=== PATIENT | female | born 1945 | race Caucasian/White ===

== ENCOUNTER 2019-01-31 20:49 | Observation (INO) | payer OTHER ==
[~2019-01-31] VITALS: Ht 165.1 cm; Wt 73.0 kg
[~2019-01-31 20:49] MED LIST: AUGMENTIN 875875 M1; CALCIUM; CELEBREX 200 M200 M1 PO; CLARITIN10 MG; FAMOTIDINE PO; FLONASE 0.05%50 MCG NASAL; LEVOTHYROXIN0.125 M2; LIMBREL 500 MG500 MG PO; MEDROLDOSEPACK PO; MOBIC15 MG PO; MUCINEX600 MG; NORCO 5-325 TA1 EACH PO; VITAMIN D1000 UNI1; VOLTAREN GEL 1100 G1 TOP; ZOCOR 20 MG TAB20 M1
[2019-01-31 20:53] VITALS: BP 140/64
[2019-02-01] VITALS (7 sets, daily range): BP systolic 117–123; BP diastolic 59–61
--- NOTE | 2019-02-01 03:53 | NUR ---
Pt arrived from ED at 0100 via cart accomapanied by staff. A/OX4, VSS.Oriented to room and unit. Has an immobilizer on LUE,painful with movement meds given per EMAR with partial relief reported.Requires modearate assist with ADLs at this time.Fall precautions implemented,resting quietly at this time. Will continue to monitor pt.
[2019-02-01] MEDS ORDERED: HYDROCODON-ACE1 EAC7 PO (13:17)
--- NOTE | 2019-02-01 13:38 | NUR ---
ASSESSMENT-PT LIVES AT HOME WITH HER . [address]. THEY SHARE THE HOUSEHOLD THINGS. THEY HAVE 4 SONS, 3 LIVES VERY CLOSE TO THEM AND THEHAVE ANOTHER SIBLING NEXT DOOR. PT DENIES ANY DC NEEDS AT THIS TIME. FOLLOWING TO ASSIST WITH DC PLANNING.
--- NOTE | 2019-02-01 15:00 | NUR ---
PT ASSISTED UP TO THE BATHROOM AND BACK TO BED. DID FINE BUT NEEDS ASSIST W/ MOST THINGS. PAIN MEDS HELPING PAIN. DISCHAGING TO HOME W/ HOME [facility] STARTING TOMORROW.
== END 2019-02-01 16:34 | disposition home health service (06) ==
LOC: ER 20:49 → EROBS 23:06 → 4S 02-01 01:06 → ENTRNSPT 02-01 15:04 → EDTRNSPTSTS 02-01 15:07 → 4S 02-01 16:34
PROVIDERS: ADMIT Family Medicine
DX: S42.202A Unspecified fracture of upper end of left humerus, initial encounter for closed fracture (principal); S60.222A Contusion of left hand, initial encounter; E03.9 Hypothyroidism, unspecified; Z90.710 Acquired absence of both cervix and uterus; Z88.2 Allergy status to sulfonamides; Z88.5 Allergy status to narcotic agent; Z88.6 Allergy status to analgesic agent; Z88.8 Allergy status to other drugs, medicaments and biological substances; Z91.013 Allergy to seafood; Z79.890 Hormone replacement therapy; Z79.899 Other long term (current) drug therapy; W19.XXXA Unspecified fall, initial encounter; Y93.89 Activity, other specified; Y92.009 Unspecified place in unspecified non-institutional (private) residence as the place of occurrence of the external cause

== ENCOUNTER 2019-09-16 10:57 | Emergency (ER) | payer OTHER ==
[~2019-09-16] VITALS: Ht 162.6 cm; Wt 74.8 kg
[~2019-09-16 10:57] MED LIST changes: +HYDROCODON-ACE1 EAC7 PO
[2019-09-16] MEDS ORDERED: NORCO 5-325 TA1 EAC1 PO (13:39)
[2019-09-16 14:00] VITALS: BP 147/70
== END 2019-09-16 14:20 | disposition home or self-care (01) ==
LOC: ER 10:57
DX: S02.2XXA Fracture of nasal bones, initial encounter for closed fracture (principal); S01.21XA Laceration without foreign body of nose, initial encounter; E03.9 Hypothyroidism, unspecified; Z90.710 Acquired absence of both cervix and uterus; Z90.89 Acquired absence of other organs; Z79.899 Other long term (current) drug therapy; Z88.2 Allergy status to sulfonamides; Z88.8 Allergy status to other drugs, medicaments and biological substances; Z88.5 Allergy status to narcotic agent; Z91.013 Allergy to seafood; W07.XXXA Fall from chair, initial encounter; Y93.89 Activity, other specified; Y92.89 Other specified places as the place of occurrence of the external cause; Y99.8 Other external cause status

== ENCOUNTER 2021-01-15 23:12 | Inpatient (IN) | payer OTHER ==
[~2021-01-15] VITALS: Ht 152.4 cm; Wt 75.3 kg
[~2021-01-15 23:12] MED LIST changes: +NORCO 5-325 TA1 EAC1 PO
[2021-01-15 23:27] VITALS: BP 194/91
[2021-01-15] MEDS ORDERED: CLARITIN10 M3 PO (23:32)
[2021-01-15 23:45] LABS: ABSOLUTE NEUTROPHILS 5.1 thou/uL (1.4-8.2); BASOPHILS 0.9 % (0.0-2.0); EOSINOPHILS 1.5 % (0.0-3.0); HEMATOCRIT 42.8 % (37.0-47.0); HEMOGLOBIN 14.2 gm/dL (12.0-15.0); LYMPHOCYTES 22.5 % (24.0-44.0); MCH 31.1 pg (26.0-34.0); MCHC 33.2 g/dL (28.0-37.0); MCV 93.7 fL (80.0-100.0); MONOCYTES 8.1 % (1.0-8.0); PLATELET COUNT 129 thou/uL (150-400); RBC 4.56 mil/uL (4.20-5.00); RDW 16.4 % (10.5-14.5); WBC 7.7 thou/uL (4.0-11.0)
[2021-01-15 23:51] LABS: CREATININE 0.8 mg/dL (0.6-1.0); POTASSIUM 3.5 mmol/L (3.5-5.1)
[2021-01-15 23:58] LABS: INR 0.98; PROTIME 10.7 Seconds (10.5-12.1)
[2021-01-16] VITALS (22 sets, daily range): BP systolic 99–140; BP diastolic 57–94
[2021-01-16 00:51] LABS: URINE BILIRUBIN 1+ (Negative); URINE BLOOD 2+ (Negative); URINE CLARITY CLOUDY; URINE COLOR YELLOW; URINE GLUCOSE-RANDOM* NEGATIVE (Negative); URINE KETONES TRACE (Negative); URINE LEUKOCYTES-REFLEX TRACE (Negative); URINE PROTEIN (DIPSTICK) NEGATIVE (Negative); URINE SPECIFIC GRAVITY >= 1.030 (1.005-1.035)
[2021-01-16 01:05] LABS: SQUAMOUS >10 Many /LPF (0-3); URINE NITRITE-REFLEX POSITIVE (Negative); URINE RBC 3-10 Few /HPF (NONE SEEN); URINE WBC-REFLEX 0-5 Rare /HPF (0-5)
[2021-01-16 01:06] LABS: CALCIUM OXALATE >10 Many /LPF (None Seen); CASTS None Seen /LPF (None Seen); MUCUS >6 Heavy strn/LPF (None Seen)
--- NOTE | 2021-01-16 06:11 | NUR ---
PT TRANSFERRED TO THE ICU AT 0445 ON HEPARIN GTT. TRANSFERRED WITH GLASSES AND CLOTHING. PT RESTING WILL FOLLOW POC.
--- NOTE | 2021-01-16 07:22 | EKG ---
[address] [place] [address] ELECTROCARDIOGRAM REPORT Name: NGHIA CARLIN Room #: 238-P ADM IN M.R.#: [id number] Admission: 01/16/21 Attend Phys: Rehan Lord MD Discharge: Date of : 41 Report #: [id number] [facility] ED Test Date: 2021-01-15 Test Time: 23:52:58 Pat Name: NGHIA CARLIN Department: Room: 238 Gender: F Sports Medicine Physician: fortino rosenthal : 1945 Requested By: Andre Ricks Order Number: [id number] MD: Tai Brady Measurements Intervals [place] Rate: 120 P: 17 CO: 170 QRS: 2 QRSD: 148 T: 260 QT: 336 QTc: 475 Interpretive Statements Sinus tachycardia Ventricular premature complex Nonspecific intraventricular conduction delay Abnormal T, consider ischemia, lateral leads Compared to ECG 05/10/1991 11:45:00 Ventricular premature complex(es) now present Intraventricular conduction delay now present T-wave abnormality now present Possible ischemia now present Sinus rhythm no longer present Electronically Signed On 01-16-2021 7:22:16 CDT by Tai Brady [email or web address] <ELECTRONICALLY SIGNED> By: Tai Brady MD, FACC 01/16/21721 51 51 Tai Brady MD, FAC /EPI
--- NOTE | 2021-01-16 07:22 | EKG ---
[address] [place] [address] ELECTROCARDIOGRAM REPORT Name: NGHIA CARLIN Room #: 238-P ADM IN M.R.#: [id number] Admission: 01/16/21 Attend Phys: Rehan Lord MD Discharge: Date of : 41 Report #: [id number] [facility] ED Test Date: 2021-01-16 Test Time: 01:29:37 Pat Name: NGHIA CARLIN Department: Room: 238 Gender: F [employer]: KATERIN : 1945 Requested By: Andre Ricks Order Number: [id number] MD: Tai Brady Measurements Intervals [place] Rate: 113 P: 78 ME: 212 QRS: 0 QRSD: 116 T: 237 QT: 365 QTc: 501 Interpretive Statements Sinus tachycardia Nonspecific intraventricular conduction delay Abnormal T, consider ischemia, diffuse leads Baseline wander in lead(s) V1 Compared to ECG 01/15/2021 23:52:58 Ventricular premature complex(es) no longer present T-wave abnormality still present Electronically Signed On 01-16-2021 7:22:31 CDT by Tai Brady [email or web address] <ELECTRONICALLY SIGNED> By: Tai Brady MD, FACC 01/16/21 0722 8 Tai Brady MD, FAC /EPI
[2021-01-16 08:40] LABS: HEMATOCRIT 43.2 % (37.0-47.0); HEMOGLOBIN 14.4 gm/dL (12.0-15.0); MCH 31.2 pg (26.0-34.0); MCHC 33.4 g/dL (28.0-37.0); MCV 93.4 fL (80.0-100.0); RBC 4.63 mil/uL (4.20-5.00); RDW 15.7 % (10.5-14.5); WBC 6.7 thou/uL (4.0-11.0)
--- NOTE | 2021-01-16 15:27 | NUR ---
patient admits with COVID positive for a month and SOA. Patient in enhanced isolation for Covid positive. Sp with spouse. 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 They live together in a home with all needs on one level. spouse reports patient cont to drive. PCP is Dr Lord. Reviewed role of casemgt with spouse. No weekend dc anticipated. casemgt following.
--- NOTE | 2021-01-16 19:19 | NUR ---
PATIENT PROGRESSING TOWARD PLAN OF CARE AND HAS BEEN TAKEN OFF ISOLATION PRECAUTIONS. PT CURRENTLY ON HEPARIN GTT AND RECEIVED A BOLUS DOSE OF HEPARIN AT 1544 TODAY. DIET WAS ADVANCED TO REGULAR AND PT IS TOLERATING IT WELL.
[2021-01-17] VITALS (19 sets, daily range): BP systolic 91–128; BP diastolic 50–105
--- NOTE | 2021-01-17 17:03 | NUR ---
BEDSIDE REPORT GIVEN TO CHRISTINE URIBE. PT TRANSFERED TO ROOM 218.
--- NOTE | 2021-01-17 17:55 | NUR ---
Recevied pt to room 218 from ICU. 2L NC. Heparin gtt in place @ 14 unit/kg/hr. High fall precautions in place. Oriented pt to unit. All questions answered.
[2021-01-18 04:15] VITALS: BP 120/70
[2021-01-18 05:34] LABS: HEMATOCRIT 36.3 % (37.0-47.0); MCH 31.8 pg (26.0-34.0); MCV 93.3 fL (80.0-100.0); RBC 3.89 mil/uL (4.20-5.00); RDW 16.1 % (10.5-14.5); WBC 6.2 thou/uL (4.0-11.0)
[2021-01-18 05:36] LABS: HEMOGLOBIN 12.4 gm/dL (12.0-15.0)
[2021-01-18 05:40] LABS: ALBUMIN 2.8 g/dL (3.4-5.0); CALCIUM 8.6 mg/dL (8.5-10.1); CREATININE 0.8 mg/dL (0.6-1.0); MAGNESIUM 2.1 mg/dL (1.8-2.4); POTASSIUM 3.6 mmol/L (3.5-5.1); TOTAL BILIRUBIN 0.4 mg/dL (0.2-1.0); TOTAL PROTEIN 5.9 g/dL (6.4-8.2)
--- NOTE | 2021-01-18 06:30 | NUR ---
assumed pt care at 1900, pt is awake, alert and orientedx4, sr on tele, denies pain, assessments as charted, heparin infusing as per protocal, no changes made as per ptt this am, remains on 2l nc, no distress noted, will pass on report
[2021-01-18 11:39] VITALS: BP 112/59
[2021-01-18 15:30] VITALS: BP 104/67
--- NOTE | 2021-01-18 18:35 | NUR ---
PT ALERT AND ORIENTED. VSS. DENIED HAVING PAIN OR DISCOMFORT. HEPARIN GTT D/C. NEW ORDERS NOTED. AT THE BEDSIDE. UPDATED ON PT'S PROGRESS AND PLAN OF CARE. PT PROGRESSING WELL TOWARDS DISCHARGE GOAL.
[2021-01-18 19:20] VITALS: BP 122/62
[2021-01-19 04:02] VITALS: BP 141/58
[2021-01-19 04:29] LABS: HEMATOCRIT 36.1 % (37.0-47.0); MCH 31.1 pg (26.0-34.0); MCHC 33.2 g/dL (28.0-37.0); MCV 93.6 fL (80.0-100.0); RBC 3.85 mil/uL (4.20-5.00); WBC 5.7 thou/uL (4.0-11.0)
[2021-01-19 07:40] VITALS: BP 121/61
--- NOTE | 2021-01-19 08:34 | NUR ---
ASSUMED CARE OF CLAUDETTE AT 0700. PT IS RESTING IN BED UPON ASSESSMENT AND MEDICAITON ADMINISTRATION. PATIENT IS PLESANT AND COOPERATIVE WITH ASSESSMENT AND MEDICATIONS WHOLE WITH WATER. PT STATES SHE WOULD LIKE TO GO HOME TODAY. VERBAL ORDER FROM DR BELTRAN FOR A RT EXERCISE EVALUATION TO SEE IF PT QUALIFIES FOR HOME OXYGEN. PT IS RESTING IN BED AT THIS TIME EATING BREAKFAST WILL CONTINUE TO MONITOR.
[2021-01-19] MEDS ORDERED: CEFDINIR300 MG PO (09:41)
[2021-01-19] MEDS ORDERED: ELIQUIS5 MG PO (09:42)
[2021-01-19 11:00] VITALS: BP 132/83
[2021-01-19 11:59] VITALS: BP 121/61
--- NOTE | 2021-01-19 12:00 | NUR ---
spoke with patient and spouse. Patient to dc home today with HH care. reviewed HH, patient with no prference. Referral to [facility] care. Called RT to alert of Resp/sat excercise prior to home.
--- NOTE | 2021-01-19 12:37 | 2DMMODE ---
[address] [address] D/M-MODE ECHOCARDIOGRAM Name: NGHIA CARLIN Room #: 218-P ADM IN M.R.#: [id number] Admission: 01/16/21 Attend Phys: Rehan Lord MD Discharge: Date of : 41 Report #: [id number] THIS REPORT FOR: cc: Rehan Lord MD, Neal A. MD Santiago, Patrick MD [facility] ~ APPROVED REPORT Study performed: 01/19/2021 11:29:10 EXAM: Comprehensive 2D, Doppler, and color-flow Echocardiogram Patient Location: Bedside Room #: 218 Status: routine BSA: 1.73 HR: 78 bpm BP: 121/61 mmHg Rhythm: NSR Other Information Study Quality: Adequate Indications Pulmonary Embolism S^P Covid 19 Tricuspid Valve PA Pressure: 36.00 mmHg Left Ventricle The left ventricle is normal size. There is normal LV segmental wall motion. There is normal left ventricular wall thickness. The left ventricular systolic function is normal. The left ventricular ejection fraction is within the normal range. LVEF is 55-60%. Grade I - abnormal relaxation pattern. Right Ventricle Right ventricle is dilated. Right ventricle is hypokinetic. Atria Left atrium is at the upper limits of normal. Right atrium is dilated. [address] [address] D/M-MODE ECHOCARDIOGRAM Name: NGHIA CARLIN Room #: 218-P ADM IN M.R.#: [id number] Admission: 01/16/21 Attend Phys: Rehan Lord, Discharge: Date of : 41 Report #: [id number] Aortic Valve The aortic valve is normal in structure. No aortic regurgitation is present. There is no aortic valvular stenosis. Mitral Valve The mitral valve is normal in structure. There is no mitral valve regurgitation noted. No evidence of mitral valve stenosis. Tricuspid Valve The tricuspid valve is normal in structure. There is trace to mild tricuspid regurgitation. Estimated PAP 36 mmHg plus the right atrial pressure. There is mild-moderate pulmonary hypertension. Pulmonic Valve The pulmonary valve is normal in structure. There is no pulmonic valvular regurgitation. Great Vessels The aortic root is normal in size. IVC is not well visualized. Pericardium There is no pericardial effusion. <Conclusion> Normal left ventricle size/wall thickness Ejection fraction 60% Grade 1 diastolic dysfunction Normal right ventricle size/function Normal aortic root size Aortic valve minimally calcified, no stenosis detected Normal mitral valve structure and function Mild tricuspid valve insufficiency Pulmonary systolic pressure estimated 36 mmHg No pericardial effusion Normal aortic root size <ELECTRONICALLY SIGNED> By: Tai Brady MD, [facility] 01/19/21 1236 1236 1236 Tai Brady MD, FACC /INF
[2021-01-19 15:00] VITALS: BP 121/61
--- NOTE | 2021-01-19 15:21 | NUR ---
PT IS DICHARGED HOME AT 1515. PTS IV AND TELE MONIOTR REOMOVED. PT IS STABLE AT [facility]. PT IS GIVEN ALL DISCHARGE AND FOLLOW UP INSTRUCTIONS. PT IS GIVEN OXYGEN CANISTER TO GET HOME AND IS TO CALL OXYGEN COMPANY ONCE SHE ARRIVES HOME. PT IS ESCORTED OFF OF UNIT VIA W/C ACCOMPANIED BY STAFF.
== END 2021-01-19 15:50 | disposition home health service (06) | DRG 871 ==
LOC: ER 23:12 → ICU 01-16 03:43 → 2N 01-16 03:43 → EROBS 01-16 03:43 → ICU 01-16 04:15 → 2N 01-17 16:55
PROVIDERS: Hospitalist; Student in an Organized Health Care Education/Training Program; ADMIT Family Medicine; ATTEND Family Medicine
DX: A41.9 Sepsis, unspecified organism (principal); I26.09 Other pulmonary embolism with acute cor pulmonale; J96.91 Respiratory failure, unspecified with hypoxia; I82.4Z2 Acute embolism and thrombosis of unspecified deep veins of left distal lower extremity; I82.452 Acute embolism and thrombosis of left peroneal vein; E03.9 Hypothyroidism, unspecified; E66.9 Obesity, unspecified; R65.20 Severe sepsis without septic shock; Z90.710 Acquired absence of both cervix and uterus; Z88.2 Allergy status to sulfonamides; Z88.6 Allergy status to analgesic agent; Z91.013 Allergy to seafood; Z68.32 Body mass index [BMI] 32.0-32.9, adult; Z28.21 Immunization not carried out because of patient refusal; Z86.16 Personal history of COVID-19
CPT/HCPCS: 10078; 10081